=== PATIENT | male | born 2000 | race Caucasian/White ===

== ENCOUNTER → 2021-07-06 14:04 | Outpatient (BNVA) | payer OTHER, SELFPAY | PROVIDERS: Family Provider Nurse Practitioner Family; PCP Nurse Practitioner Family; Visit Provider Nurse Practitioner | DX: Z20.822 Contact with and (suspected) exposure to COVID-19 (principal) | CPT/HCPCS: 87635 ==

== ENCOUNTER 2021-07-11 13:21 | Outpatient (CLI) | payer OTHER, SELFPAY ==
[2021-07-11 13:30] VITALS: BP 137/91; PULSE 91; RESP 16; TEMP 36.9; O2SAT 97; BMI 50.1
[2021-07-11 14:28] VITALS: BP 124/70; PULSE 87; RESP 18; O2SAT 94
[2021-07-11 15:58] VITALS: BP 132/87; PULSE 84; RESP 18; TEMP 36.8; O2SAT 96
== END 2021-07-11 13:22 | disposition home or self-care (01) ==
LOC: OPS 13:26
PROVIDERS: PCP Nurse Practitioner Family; Visit Provider Nurse Practitioner Family
DX: U07.1 COVID-19 (principal)
CPT/HCPCS: 96365